=== PATIENT | female | born 1980 | race Hispanic/Latino ===

== ENCOUNTER 2019-11-15 05:07 | Emergency (ER) | payer OTHER ==
[2019-11-15] MEDS ORDERED: ASPIRIN 325 MG TABLET ONE (06:12)
[2019-11-15] MEDS ORDERED: ACETAMINOPHEN 325 MG TAB ONE (06:12)
[2019-11-15 06:18] LABS: BASOPHILS % (AUTO) 0.8 % (0.0-5.0); EOSINOPHILS % (AUTO) 1.3 % (0.0-8.0); HEMATOCRIT 39.6 % (36-48); LYMPHOCYTES % (AUTO) 32.6 % (21.0-51.0); MEAN CORPUSCULAR HEMOGLOBIN 28.1 pg (27.0-33.0); MEAN CORPUSCULAR HGB CONC 34.1 g/dL (32.0-36.0); MEAN CORPUSCULAR VOLUME 82.5 fL (79-99); MONOCYTES % (AUTO) 7.8 % (3.0-13.0); NEUTROPHILS % (AUTO) 57.3 % (40.0-77.0); PLATELET COUNT (AUTO) 296 K/uL (130-400); RED CELL DISTRIBUTION WIDTH 12.7 % (11.0-15.5)
[2019-11-15 08:13] LABS: CREATININE 0.7 mg/dL (0.5-1.5); POTASSIUM 3.6 mmol/L (3.5-5.1)
[2019-11-15 08:19] LABS: ALBUMIN 3.9 g/dL (3.5-5.0); BILIRUBIN,TOTAL 0.4 mg/dL (0.2-1.0); TOTAL PROTEIN, SERUM 7.2 g/dL (6.0-8.3)
== END 2019-11-15 06:57 | disposition home or self-care (01) ==
LOC: EDH 05:07
DX: R07.89 Other chest pain (principal); F41.9 Anxiety disorder, unspecified; R00.2 Palpitations; Z98.890 Other specified postprocedural states; Z90.49 Acquired absence of other specified parts of digestive tract
CPT/HCPCS: 36415; 71045; 80053; 82550; 84484; 85025; 93005

== ENCOUNTER 2019-12-08 23:15 | Emergency (ER) | payer MEDICAID ==
[2019-12-08] MEDS ORDERED: SODIUM CHLORIDE IRRIG SOLUTION 1,000 ML IR ONE (23:16)
[2019-12-09 00:20] LABS: APPEARANCE,URINE Clear (CLEAR); BILIRUBIN,URINE Negative (NEGATIVE); COLOR,URINE Yellow (YELLOW); GLUCOSE, URINE (UA) Negative (NEGATIVE); KETONES,URINE Negative (NEGATIVE); LEUKOCYTE ESTERASE ,URINE Negative (NEGATIVE); NITRATE,URINE Negative (NEGATIVE); OCCULT BLOOD,URINE Negative (NEGATIVE); PH,URINE 6.5 (5.0-8.0); PROTEIN,URINE Negative (NEGATIVE); UROBILINOGEN,URINE 0.2 mg/dL (0.2-1.0)
[2019-12-09 00:23] LABS: HCG,QUAL RESULT NEGATIVE (NEGATIVE)
[2019-12-09] MEDS ORDERED: ONDANSETRON HCL 4 MG/2 ML VIAL ONE (00:28)
[2019-12-09] MEDS ORDERED: LORAZEPAM 2 MG/ML 1 ML VIAL ONE (00:29)
[2019-12-09 00:40] LABS: BASOPHILS % (AUTO) 0.6 % (0.0-5.0); EOSINOPHILS % (AUTO) 1.3 % (0.0-8.0); HEMATOCRIT 40.2 % (36-48); LYMPHOCYTES % (AUTO) 27.7 % (21.0-51.0); MEAN CORPUSCULAR HEMOGLOBIN 28.2 pg (27.0-33.0); MEAN CORPUSCULAR HGB CONC 34.1 g/dL (32.0-36.0); MEAN CORPUSCULAR VOLUME 82.9 fL (79-99); MONOCYTES % (AUTO) 7.6 % (3.0-13.0); NEUTROPHILS % (AUTO) 62.6 % (40.0-77.0); PLATELET COUNT (AUTO) 333 K/uL (130-400); RED BLOOD CELL COUNT(AUTO) 4.85 MIL/uL (4.00-5.50); RED CELL DISTRIBUTION WIDTH 12.5 % (11.0-15.5); WHITE BLOOD COUNT (AUTO) 8.7 K/uL (4.8-10.8)
[2019-12-09 01:12] LABS: CREATININE 0.7 mg/dL (0.5-1.5); POTASSIUM 3.5 mmol/L (3.5-5.1)
[2019-12-09 01:17] LABS: ALBUMIN 3.9 g/dL (3.5-5.0); BILIRUBIN,TOTAL 0.2 mg/dL (0.2-1.0); TOTAL PROTEIN, SERUM 7.2 g/dL (6.0-8.3)
== END 2019-12-09 02:40 | disposition home or self-care (01) ==
LOC: EDH 23:15
DX: A09 Infectious gastroenteritis and colitis, unspecified (principal); F43.0 Acute stress reaction; R11.10 Vomiting, unspecified; K21.9 Gastro-esophageal reflux disease without esophagitis; F41.9 Anxiety disorder, unspecified; Z90.49 Acquired absence of other specified parts of digestive tract; Z98.890 Other specified postprocedural states; Z72.0 Tobacco use
CPT/HCPCS: 36415; 80053; 81003; 81025; 83690; 84484; 85025; 93005; 96361; 96374; 96375; 99284; J2060; J2405

== ENCOUNTER 2020-01-02 22:12 | Emergency (ER) | payer MEDICAID ==
[2020-01-02] MEDS ORDERED: ACETAMINOPHEN EXTRA STRENGTH 500 MG TABLET ONE (23:38)
[2020-01-03] MEDS ORDERED: IOHEXOL-350 75 ML VIAL IV ONE (00:28)
[2020-01-03] MEDS ORDERED: CEFTRIAXONE SODIUM 500 MG VIAL ONE (02:17)
[2020-01-03] MEDS ORDERED: LIDOCAINE HCL-MPF 1% 2ML VIAL ONE (02:18)
[2020-01-03] MEDS ORDERED: AZITHROMYCIN 250 MG TABLET PO ONE (02:18)
[2020-01-03] MEDS ORDERED: ORPHENADRINE CITRATE 30 MG/ML ML ONE (02:27)
== END 2020-01-03 03:00 | disposition home or self-care (01) ==
LOC: EDH 22:12
DX: R10.32 Left lower quadrant pain (principal)
CPT/HCPCS: 36415; 74178; 80053; 81001; 81025; 83690; 85025; 86140; 87210; 87486; 87797; 96372; 96374; 99285; J0696; J2360; J3490; Q9967

== ENCOUNTER 2020-02-07 00:41 | Emergency (ER) | payer MEDICAID | END 2020-02-08 01:18 | disposition home or self-care (01) | LOC: EDH 00:41 | DX: R10.12 Left upper quadrant pain (principal); K21.9 Gastro-esophageal reflux disease without esophagitis; F41.9 Anxiety disorder, unspecified; Z98.890 Other specified postprocedural states; Z90.49 Acquired absence of other specified parts of digestive tract; Z72.0 Tobacco use; Z53.21 Procedure and treatment not carried out due to patient leaving prior to being seen by health care provider ==